=== PATIENT | female | born 1995 | race Caucasian/White ===

== ENCOUNTER 2018-02-22 07:30 | Observation (INO) | payer BC ==
[2018-02-22] MEDS ORDERED: MBX SOLN 30 ML BOTTLE PO ONE (09:01)
--- NOTE | 2018-02-22 09:12 | PDGENHP ---
History and Physical - Chief Complaint vomiting and upper abdominal pain - History of Present Illness 22 G1 at 38w2d presents with an episode of vomiting this morning. Got up, felt some upper abdominal pain, took a bath, minimal relief, back to bed, then got up suddenly and vomited and collapsed as she did so. Also vomited again once after arrival here. Currently no appetite but no persistent nausea. Has a hx of GERD, and sometimes takes Tums, but did not try this morning. Similar episode happened 4 days ago, but resolved and did not happen again until this morning. Denied Etoh or drug use to ELSIE Whitlock. no VB, no LOF. Good FM. NO VILLASENOR, no vis changes, no change in edema. No fevers. No change in bowel or bladder habits. Is not feeling any contractions. care with BW. Dating by LMP and 8w5d US. A pos Rubella NON immune GBS POS Innatal neg, all other labs wnl. History Information - Allergies/Home Medication List Allergies/Adverse Reactions: latex Allergy (Verified 02/22/18 07:54) Swelling/neck,face,throat avocado Allergy (Uncoded 02/22/18 07:54) Home Medications: Albuterol [Proventil Inhaler HFA (*)] 1 - 2 puffs IH PRN 02/22/18 [Last Taken Unknown] Ferrous Sulfate [Slow Fe 140 MG (*)] 140 mg PO DAILY 02/22/18 [Last Taken 1 Day Ago ~02/21/18] Vit27&Calcium/Iron/FA [] 1 tab PO DAILY 02/22/18 [Last Taken 1 Day Ago ~02/21/18] I have personally reviewed and updated: family history, medical history, social history, surgical history Past Medical History: migraines, ADD - no meds in preg, Asthma, hx depression and anxiety. LSIL pap - needs colp pp. L axillary mass - stable x 5yr - Past Medical History asthma - Surgical History Reports: no pertinent surgical hx Additional surgical history: no surgery - Family History Positive for: non-pertinent - Social History Smoking Status: Current some day smoker Tobacco Use: Less than 1 pack/day (says down to 1 cig per day) Drug Use: None Review of Systems Review of Systems: ROS: 10pt was reviewed & negative except for what was stated in HPI & below Physical Exam Physical Exam: FHR - 130, reactive, mod pablo, + accels, no decels, Cat 1 toco - no contractions 36.8 20 97 106/61 Constitutional: no apparent distress Eyes: PERRL, EOMI Ears, Nose, Mouth, Throat: moist mucous membranes, hearing normal, ears appear normal Cardiovascular: regular rate and rhythym, systolic murmur Respiratory: no respiratory distress, no rales or rhonchi Gastrointestinal: normoactive bowel sounds (fundus firm and NT, c/w 38wk), soft , non-tender abdomen (mild epigastric tenderness, no rebound or guarding, ) Skin: warm, normal color, no rashes or abrasions Musculoskeletal: no muscle tenderness (BLE - 1+ brisk reflexes, 1+ pitting edema ) Neurologic: AAOx3 Psychiatric: interacting appropriately, not anxious Lab Data & Imaging Review Urine dip neg - will send for full UA and culture if indicated. Assessment & Plan Assessment: 22 G1 with epigastric pain and vomiting this morning, similar to an episode 4 d ago - suspect GERD. Will try a GI cocktail - if relieves pain, will recommend starting on regular Pepcid or Zantac until delivers. Will also consider Zofran if vomiting continues. Reassuring monitoring. Natalie Barclay MD, FACOG [facility], [place]
--- NOTE | 2018-02-22 11:55 | SOAPPROG ---
SOAP Progress Note Assessment/Plan: Assessment: 22 G1 at 38w2d with GERD and likely viral gastroenteritis. Epigastric pain resolved with GI cocktail. Pt desires dc home. Plan: DC home. Pt instructed to hydrate well. If N/V and now diarrhea continues for more than 24 hours, needs to come back as may need IV hydration. BRAT diet FU as scheduled in office in 3 days. Natalie Barclay MD, FACOG [facility] 02/22/18 11:50 Subjective: Pt feeling OK. Epigastric pain resolved with GI cocktail. Has now had one episode of diarrhea. Is able to sip water. Has had a couple bites of toast without vomiting. Declines IV placement and IV hydration - prefers to try to hydrate at home. Objective: gen - pleasant, resting comfortably in bed. abd - gravid, NT - Time Spent With Patient Time Spent With Patient: Total time today - 30 min face to face - Pending Discharge Pending Discharge Within 24 Hours: Yes Pending Discharge Within 48 Hours: Yes Pending Discharge Date: 02/23/18 Pending Discharge Time: 11:00 ICD10 Worksheet Patient Problems: Problems Problem Status Onset GERD (gastroesophageal reflux disease) Acute Gastroenteritis Acute Gastroenteritis and colitis, viral Acute Gastroenteritis and colitis, viral Acute - ICD10 Problem Qualifiers (1) GERD (gastroesophageal reflux disease) (2) Gastroenteritis (3) Gastroenteritis and colitis, viral (4) Gastroenteritis and colitis, viral
== END 2018-02-22 12:30 | disposition home or self-care (01) ==
LOC: FLD 07:30
PROVIDERS: ADMIT Hospitalist; ATTEND Hospitalist
DX: O21.2 Late vomiting of pregnancy (principal); O99.333 Smoking (tobacco) complicating pregnancy, third trimester; Z3A.38 38 weeks gestation of pregnancy; Z91.040 Latex allergy status; F17.210 Nicotine dependence, cigarettes, uncomplicated
CPT/HCPCS: 59025; G0378

== ENCOUNTER 2018-02-25 18:10 | Inpatient (IN) | payer BC ==
[2018-02-25] MEDS ORDERED: OLIVE OIL 118 ML BTL MISC PRN (18:18)
[2018-02-25] MEDS ORDERED: LR 1,000 ML IV PRN (18:18)
[2018-02-25] MEDS ORDERED: AMMONIA AROMATIC 1 EACH AMP IH PRN (18:18)
[2018-02-25] MEDS ORDERED: AMPICILLIN SODIUM 2 GM in NS 100 ML IV ONE (18:18)
[2018-02-25] MEDS ORDERED: IBUPROFEN 600 MG TAB PO PRN (18:18)
[2018-02-25] MEDS ORDERED: OXYTOCIN/RINGERS LACTATE 1,000 ML IV PRN (18:18)
[2018-02-25] MEDS ORDERED: LIDOCAINE 1% 300 MG/30 ML SDV SC PRN (18:18)
[2018-02-25] MEDS ORDERED: TERBUTALINE SULFATE 1 MG/ML VIAL IV PRN (18:18)
[2018-02-25] MEDS ORDERED: EPSOM SALT 454 GM TP PRN (18:18)
[2018-02-25] MEDS ORDERED: MISOPROSTOL 200 MCG TAB PO PRN (18:18)
[2018-02-25] MEDS ORDERED: MISOPROSTOL 25 MCG CAP PO ONE (19:30)
[2018-02-25] MEDS ORDERED: CALCIUM CARBONATE 500 MG CHEWABLE TAB PO PRN ×2 (21:47→22:45)
[2018-02-25] MEDS ORDERED: ACETAMINOPHEN 500 MG TAB PO PRN (21:47)
[2018-02-25 21:54] LABS: PLATELET COUNT 131 10^3/uL (150-400)
--- NOTE | 2018-02-25 22:21 | GHP ---
DATE OF ADMISSION: 02/25/2018 ADMITTING DIAGNOSIS: Intrauterine at 38-5/7 weeks' gestation with gestational hypertension for induction of labor. HISTORY OF PRESENT ILLNESS: The patient is a 22-year-old, 1, para 0, with a last menstrual p eriod of 05/30/2017, and an EDC of 03/06/2018, which was confirmed by an 8-week ultrasound. She has had good care at [facility] since registration at 8 weeks' gestation. Her signifi cant risk factor is she has a history of asthma. She has albuterol that she uses as needed and she does a steroid inhaler daily. She has a history of depression and anxiety. No current medic ation. She will be monitored closely. She has a left axillary mass that has been stable. Question lipoma versus accessory breast tissue. It has not changed in . We will observe. She had a low-grade ODESSA Pap in . Colposcopy was done. No biopsy was done. We will perform postpart um. She is rubella nonimmune, and she has developed gestational hypertension. She began having elev ated blood pressures at 34 weeks' gestation. She had a blood pressure of 130/88. Repeats were gwen r, 110/78. She was given PIH precautions. At 36 weeks, blood pressure was 140/66. She had PIH labs done. The only significant finding was borderline platelets of 131. Her P:C ratio was 0.298. She was continued to be followed weekly, and she denied any symptoms. Blood pressure today was again caesar vated, 140s over 80s, and repeat was the same. Decision was made to proceed with induction of labor for gestational hypertension with a clinical diagnosis of more than 1 elevated blood pressure over 14 0s over 90s. Patient continues to deny headache, scotomata, right upper quadrant pain, or significan t edema. She reports good movement. No leakage of fluid. No vaginal bleeding. No significan t contractions. PAST OBSTETRICAL HISTORY: Zero. This is her 1st . PAST GYNECOLOGICAL HISTORY: Significant for a low-grade ODESSA Pap in this . Colposcopy was p erformed, but no biopsies were performed. This will be repeated . She had normal menarche at age 15, interval every 25-28 days, length of 3-4 days. Regular last menstrual period of 05/30/19 18. She has no other gynecological history. PAST MEDICAL HISTORY: Asthma, history of anxiety, depression, and a left axillary mass. No past malaika gical history. She has a history of migraines. SOCIAL HISTORY: She is a smoker. She has cut down and quit during this . She denies alcoh ol or drug abuse. She lives with her partner, Daren. She is not currently working. They moved from [place] approximately 3 months prior to registration for this . She also has a history of ADD and has been on Adderall. ALLERGIES: She is allergic to latex which causes facial swelling. She is also allergic to avocados, but no known drug allergies. LABS: In this , she is A positive, antibody negative. RPR nonreactive. Rubella nonimmune. Hepatitis negative. HIV negative. 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 Father of the baby was negative. Pap L GSIL. Gonorrhea and chlamydia negative. Urine negative. Urine drug screen negative. Varicella imm une. Verify was normal. AFP was negative. One-hour GTT 77. GBS is positive. FAMILY HISTORY: Mother had ovarian cancer 7 years ago. She is still living. PHYSICAL EXAMINATION: VITAL SIGNS: Currently, her blood pressure is 127/73. Also, she had a 138/88 . Temperature is 36.9. Other vital signs are stable. heart tones are 130s, reactive moderate variability, category 1. She is not petros. Cervix in the office was closed, 40% high, and the baby was confirmed to be cephalic. Labs are pending at this time. ASSESSMENT/PLAN: A 22-year-old 1, para 0, at 38-5/7 weeks' gestation, with gestational hyper tension, documented blood pressures over 140s over 90s on more than 1 occasion, for induction of labo r. Patient will have Cytotec for cervical ripening overnight and assessment in the morning for possi ble Pitocin versus Lynn catheter for further ripening with Pitocin. [facility] labs are pending, as well a s a repeat urine P:C. /[id number]/MODL
[2018-02-25] MEDS ORDERED: OXYTOCIN 10 UNIT/ML VIAL ONE (22:37)
[2018-02-25] MEDS: AMPICILLIN SODIUM 1 GM in NS 100 ML IV SCH (23:17)
[2018-02-25] MEDS: MISOPROSTOL 50 MCG CAP PO SCH (23:17)
[2018-02-26] MEDS: MISOPROSTOL 50 MCG CAP PO SCH ×3 (01:15→11:21)
[2018-02-26] MEDS: AMPICILLIN SODIUM 1 GM in NS 100 ML IV SCH ×2 (08:48→11:20)
[2018-02-26] MEDS ORDERED: diphenhydrAMINE 25 MG CAP PO PRN (11:59)
[2018-02-26] MEDS ORDERED: OXYTOCIN/RINGERS LACTATE 500 ML IV SCH (12:00)
[2018-02-26] MEDS ORDERED: LR 500 ML IV PRN (12:00)
--- NOTE | 2018-02-26 12:10 | OBPROG ---
Labor Progress Note Assessment/Plan: Assessment: 22 y/o @ 38 6/7 weeks for IOL secondary to GHTN Plan: Pt is s/p Cytotec x 2 - last at 0130, unable to give additional doses secondary to frequent ctx's SVE: FT/50/-2, anterior Omnzon bulb was placed via speculum and inflated with 40 cc NS; pt yannick well; no complications Became aware that pt is allergic to Latex, and Benadryl was given-so far pt is doing well with no reaction FHTs - Cat I tracing, reassuring Will keep monzon in place x 12 hours and then start Pitocin around midnight along with PCN for GBS prophylaxis BPs stable, pt remains asymptomatic Will cont to closely monitor 02/26/18 12:17 Subjective/Intrapartum Course: 02/26/18 12:10 Pt doing well with no complaints. States some mild cramping. Denies any HAs, visual changes or RUQ pain. Good FM noted. Denies any LOF or VB. Objective: 02/25/18 21:35 02/25/18 21:35 Patient ABO/Rh A POSITIVE 02/25/18 21:35 Uric Acid 4.2 mg/dL (2.5-6.8) 02/25/18 21:35 Total Bilirubin 0.2 mg/dL (0.1-1.4) 02/25/18 21:35 Conjugated Bilirubin 0.1 mg/dL (0.0-0.5) 02/25/18 21:35 Unconjugated Bilirubin 0.1 mg/dL (0.0-1.1) 02/25/18 21:35 AST 23 IU/L (14-46) 02/25/18 21:35 ALT 31 IU/L (9-52) 02/25/18 21:35 Lactate Dehydrogenase 460 IU/L (313-618) 02/25/18 21:35 - SVE Dilation (cm): 1 (FT) Effacement (%): 50 Station: -2 Membranes: Intact - Contraction Pattern Assessment Current Contraction Pattern: Irregular (q3-5 min) - FHR Assessment Dash FHR (bpm): 140 FHR Pattern Variability: Moderate FHR Category: 1 - Procedures Non-surgical Procedures: Other (Specify) (Monzon bulb placement) - AP Antepartum Course: 02/26/18 12:15 GHTN. +tobacco use, ?quit. Rubella nonimmune. GBS positive. Abn pap -LSIL. Oxytocin Orders Assessment - Pre-Induction/Augmentation Assessment Gestational Age: 38 week(s) and 5 day(s) ICD10 Worksheet Patient Problems: Problems Problem Status Onset Encounter for induction of labor Acute GBS (group B Streptococcus carrier), +RV culture, currently Acute Gestational hypertension Acute
[2018-02-27] MEDS: PENICILLIN G POTASSIUM 2,500,000 UNIT in D5W 150 ML IV SCH ×6 (00:09→17:31)
[2018-02-27] MEDS ORDERED: fentaNYL 2MCG/ML/BUP 0.1% RTU 100 ML BAG EP ONE (03:33)
[2018-02-27] MEDS ORDERED: PHENYLEPHRINE HCL 100 MCG/ML SYR ONE (03:33)
[2018-02-27] MEDS ORDERED: PHENYLEPHRINE HCL 100 MCG/ML SYR IVP PRN (04:18)
--- NOTE | 2018-02-27 04:18 | PREANESOB ---
Obstetric Pre-Anesthesia Info - General Info : 1 Para: 0 CARLO: 03/06/18 Gestational Age: 38 week(s) and 5 day(s) - Info Status: Full Term Monitors: External FHR Pattern: Reassuring - Labor Status Cervical Dilation per last OB SVE: 1 (FT) Station per last OB SVE: -2 PIH: Mild Indications for Labor Analgesia: Induction of Labor Labor Epidural: Proposed Anesthesia Allergies/Adverse Reactions: Allergy/AdvReac Type Severity Reaction Status Date / Time latex Allergy Swelling/ne Verified 02/22/18 07:54 ck,face,thr oat avocado Allergy Uncoded 02/22/18 07:54 Home Medications: Medication Instructions Recorded Albuterol [Proventil Inhaler HFA 1 - 2 puffs IH PRN 02/22/18 (*)] Ferrous Sulfate [Slow Fe 140 MG 140 mg PO DAILY 02/22/18 (*)] Vit27&Calcium/Iron/FA 1 tab PO DAILY 02/22/18 [] Visit Medications: Generic Name Dose Route Start Last Admin Trade Name Freq PRN Reason Stop Dose Admin Acetaminophen 1,000 mg 02/25/18 21:47 Tylenol PO 08/24/18 21:46 Q6HRS PRN Pain, Mild/Fever, Can Take PO Ammonia (Aromatic Spirit) 1 each 02/25/18 18:18 Ammonia Aromatic IH 03/07/18 18:17 ONCE PRN Fainting Calcium Carbonate 500 mg 02/25/18 21:47 02/26/18 05:38 Tums PO 08/24/18 21:46 500 mg TID PRN Administration Indigestion Calcium Carbonate 500 - 1,000 mg 02/25/18 22:45 02/25/18 22:45 Tums PO 08/24/18 22:44 500 mg Q4 PRN Administration INDIGESTION Diphenhydramine HCl 25 mg 02/26/18 11:59 02/26/18 12:10 Benadryl PO 08/25/18 11:58 25 mg Q6HRS PRN Administration Itching Oxytocin/Lactated Ringer's 1,000 mls @ 0 mls/hr 02/25/18 18:18 Pitocin 20 Units/Lr (Premix) IV PRN PRN Post bleeding Wide Open Oxytocin/Lactated Ringer's 500 mls @ 0 mls/hr 02/26/18 12:00 02/27/18 00:09 Pitocin 30 Units/Lr (Premix) IV 08/25/18 11:59 500 mls CONT ELIZABETH Administration Protocol Per Protocol Penicillin G Potassium 2,500, 155 mls @ 155 mls/hr 02/27/18 04:00 000 unit/ Dextrose IV 03/29/18 00:00 Q4H ELIZABETH Protocol Ibuprofen 600 mg 02/25/18 18:18 Motrin PO ONCE PRN post , pain Lidocaine HCl 300 mg 02/25/18 18:18 Lidocaine Hcl 1% SC 08/24/18 18:17 ONCE PRN episiotomy Magnesium Sulfate 454 gm 02/25/18 18:18 Epsom Salt TP 08/24/18 18:17 Q1H PRN perineal discomfort Misoprostol 800 - 1,000 mcg 02/25/18 18:18 Cytotec PO 08/24/18 18:17 ONCE PRN Vaginal Atony/Bleeding Applegate Oil 118 ml 02/25/18 18:18 Sweet Oil MISC 08/24/18 18:17 ONCE PRN perineal massage Terbutaline Sulfate 0.25 mg 02/25/18 18:18 Brethine IV 08/24/18 18:17 ONCE PRN Tachysystole Discontinued Medications Generic Name Dose Route Start Last Admin Trade Name Freq PRN Reason Stop Dose Admin Fentanyl/Bupivacaine HCl Confirm 02/27/18 03:33 Fentanyl/Bupivacaine/Ns 2 Mcg/Ml 0.1% (Premix Administered 02/27/18 03:34 Dose 100 ml EP .STK-MED ONE Ampicillin Sodium 2 gm/ Sodium 110 mls @ 220 mls/hr 02/25/18 18:18 02/25/18 23:16 Chloride IV 02/25/18 18:47 Not Given ONCE ONE Protocol Ampicillin Sodium 1 gm/ Sodium 100 mls @ 200 mls/hr 02/25/18 22:30 02/26/18 11:20 Chloride IV 03/27/18 22:29 Not Given Q4H [facility] Protocol Lactated Ringer's 1,000 mls @ 0 mls/hr 02/25/18 18:18 Lr IV 02/26/18 18:17 PRN PRN SEE PROTOCOL CONDITIONS Protocol Per Protocol Lactated Ringer's 500 mls @ 500 mls/hr 02/26/18 12:00 02/27/18 00:09 Lr IV 02/27/18 12:00 500 mls PRN PRN Administration Maternal Hypotension Penicillin G Potassium 2,500, 155 mls @ 155 mls/hr 02/27/18 00:01 02/27/18 02 :34 000 unit/ Dextrose IV 03/29/18 00:00 Not Given Q4HRS [facility] Protocol Misoprostol 25 mcg 02/25/18 19:30 02/25/18 21:19 Cytotec PO 02/25/18 19:31 25 mcg ONCE ONE Administration Misoprostol 50 mcg 02/25/18 21:30 02/26/18 11:21 Cytotec PO 08/24/18 21:29 Not Given Q4H [facility] Oxytocin Confirm 02/25/18 22:37 Pitocin Administered 02/25/18 22:38 Dose 10 unit .ROUTE .STK-MED ONE Phenylephrine HCl Confirm 02/27/18 03:33 Neosynephrine Administered 02/27/18 03:34 Dose 1,000 mcg .ROUTE .STK-MED ONE - Vital Signs Height/Weight (Nursing): Height 175.26 cm Weight 85.729 kg - Focused Exam Neck exam: FROM Mallampati Score: Class 2 Mouth exam: normal dental/mouth exam Pulmonary: no respiratory distress, no rales or rhonchi, clear to auscultation Cardiovascular: regular rate and rhythym, no murmur, rub, or gallop Labs: 02/25/18 21:35 02/25/18 21:35 Patient ABO/Rh A POSITIVE 02/25/18 21:35 Uric Acid 4.2 mg/dL (2.5-6.8) 02/25/18 21:35 Total Bilirubin 0.2 mg/dL (0.1-1.4) 02/25/18 21:35 Conjugated Bilirubin 0.1 mg/dL (0.0-0.5) 02/25/18 21:35 Unconjugated Bilirubin 0.1 mg/dL (0.0-1.1) 02/25/18 21:35 AST 23 IU/L (14-46) 02/25/18 21:35 ALT 31 IU/L (9-52) 02/25/18 21:35 Lactate Dehydrogenase 460 IU/L (313-618) 02/25/18 21:35
[2018-02-27] MEDS ORDERED: LR 500 ML IV SCH (04:30)
--- NOTE | 2018-02-27 04:36 | POSTANESTH ---
Post Anesthetic Evaluation Cardiovascular Status: Normal, Stable Respiratory Status: Normal, Stable, Similar to Pre-op Cond. Level of Consciousness/Mental Status: Can Participate in Eval, Alert and Oriented Pain Control: Adequate, Prn Tx Ordered Nausea/Vomiting Control: Adequate, Prn Tx Ordered Complications Possibly Related to Anesthesia: None Noted (Good analgesia.)
--- NOTE | 2018-02-27 09:58 | OBPROG ---
Labor Progress Note Assessment/Plan: Assessment: 22 y/o @ 39 y/o IOL secondary to Gestational HTN Plan: She is on pitocin and is comfortable with her epidural. Good cervical progress , hopeful that AROM with accelerate things. IUPC place to ensure adequate contractions. status is reassuring. BP have been stable and she remains asymptomatic. 02/27/18 09:58 Subjective/Intrapartum Course: 02/26/18 12:10 Pt doing well with no complaints. States some mild cramping. Denies any HAs, visual changes or RUQ pain. Good FM noted. Denies any LOF or VB. 02/27/18 09:55 Pt is resting comfortably with her epidural. She is aware of some contractions but denies pain. No pelvic pressure. Objective: 02/25/18 21:35 02/25/18 21:35 Patient ABO/Rh A POSITIVE 02/25/18 21:35 Uric Acid 4.2 mg/dL (2.5-6.8) 02/25/18 21:35 Total Bilirubin 0.2 mg/dL (0.1-1.4) 02/25/18 21:35 Conjugated Bilirubin 0.1 mg/dL (0.0-0.5) 02/25/18 21:35 Unconjugated Bilirubin 0.1 mg/dL (0.0-1.1) 02/25/18 21:35 AST 23 IU/L (14-46) 02/25/18 21:35 ALT 31 IU/L (9-52) 02/25/18 21:35 Lactate Dehydrogenase 460 IU/L (313-618) 02/25/18 21:35 113/57, 125/70, 101/55, 112/58, 127/66 - SVE Dilation (cm): 6 Effacement (%): 75 Station: -2 Membranes: AROM, Intact Amniotic Fluid Color: Meconium Stained - Contraction Pattern Assessment Current Contraction Pattern: Regular (Q 4-5), Irregular (q3-5 min) - FHR Assessment Dash FHR (bpm): 120 FHR Pattern Variability: Moderate FHR Category: 1 - Procedures Non-surgical Procedures: Amniotomy, IUPC, Other (Specify) (Lynn bulb placement) - AP Antepartum Course: 02/26/18 12:15 GHTN. +tobacco use, ?quit. Rubella nonimmune. GBS positive. Abn pap -LSIL. Oxytocin Orders Assessment - Pre-Induction/Augmentation Assessment Gestational Age: 38 week(s) and 5 day(s) ICD10 Worksheet Patient Problems: Problems Problem Status Onset Encounter for induction of labor Acute GBS (group B Streptococcus carrier), +RV culture, currently Acute Gestational hypertension Acute
[2018-02-27] MEDS: fentaNYL 2MCG/ML/BUP 0.1% RTU 100 ML EP SCH ×2 (10:20→13:53)
--- NOTE | 2018-02-27 11:32 | OBPROG ---
Labor Progress Note Assessment/Plan: Assessment: 22 y/o @ 39 y/o IOL secondary to Gestational HTN Plan: She is having more pain and not imminent for delivery. We will call anesthesia for a bolus and adjustment. Continue pitocin and status is reassuring. 02/27/18 09:58 02/27/18 11:31 Subjective/Intrapartum Course: 02/26/18 12:10 Pt doing well with no complaints. States some mild cramping. Denies any HAs, visual changes or RUQ pain. Good FM noted. Denies any LOF or VB. 02/27/18 09:55 Pt is resting comfortably with her epidural. She is aware of some contractions but denies pain. No pelvic pressure. 02/27/18 11:29 I was called to assess patient because of difficulties with pain control from her epidural. She is feeling contractions along her lower abdomen and pelvis. Not rectal pressure, pain. Objective: 02/25/18 21:35 02/25/18 21:35 Patient ABO/Rh A POSITIVE 02/25/18 21:35 Uric Acid 4.2 mg/dL (2.5-6.8) 02/25/18 21:35 Total Bilirubin 0.2 mg/dL (0.1-1.4) 02/25/18 21:35 Conjugated Bilirubin 0.1 mg/dL (0.0-0.5) 02/25/18 21:35 Unconjugated Bilirubin 0.1 mg/dL (0.0-1.1) 02/25/18 21:35 AST 23 IU/L (14-46) 02/25/18 21:35 ALT 31 IU/L (9-52) 02/25/18 21:35 Lactate Dehydrogenase 460 IU/L (313-618) 02/25/18 21:35 - SVE Dilation (cm): 7 Effacement (%): 80 Station: -1 Membranes: AROM, Intact Amniotic Fluid Color: Meconium Stained - Contraction Pattern Assessment Current Contraction Pattern: Regular (Q 3-4), Irregular (q3-5 min) - FHR Assessment Dash FHR (bpm): 120 FHR Pattern Variability: Moderate FHR Category: 1 - Procedures Non-surgical Procedures: Amniotomy, IUPC, Other (Specify) (Lynn bulb placement) - AP Antepartum Course: 02/26/18 12:15 GHTN. +tobacco use, ?quit. Rubella nonimmune. GBS positive. Abn pap -LSIL. Oxytocin Orders Assessment - Pre-Induction/Augmentation Assessment Gestational Age: 38 week(s) and 5 day(s) ICD10 Worksheet Patient Problems: Problems Problem Status Onset Encounter for induction of labor Acute GBS (group B Streptococcus carrier), +RV culture, currently Acute Gestational hypertension Acute
[2018-02-27] MEDS ORDERED: fentaNYL 100 MCG/2 ML INJ ONE (11:37)
[2018-02-27] MEDS ORDERED: BUPIVACAINE 0.25% 30 ML SDV ONE (11:37)
--- NOTE | 2018-02-27 14:00 | OBPROG ---
Labor Progress Note Assessment/Plan: Assessment: 22 y/o @ 40 y/o IOL secondary to Gestational HTN Plan: On exam, baby feels to be OP presentation. We will bolus again and try to encourage rotation with side positioning and peanut ball, or hands and knees with the werner bag. status is reassuring. 02/27/18 09:58 02/27/18 11:31 02/27/18 13:59 Subjective/Intrapartum Course: 02/26/18 12:10 Pt doing well with no complaints. States some mild cramping. Denies any HAs, visual changes or RUQ pain. Good FM noted. Denies any LOF or VB. 02/27/18 09:55 Pt is resting comfortably with her epidural. She is aware of some contractions but denies pain. No pelvic pressure. 02/27/18 11:29 I was called to assess patient because of difficulties with pain control from her epidural. She is feeling contractions along her lower abdomen and pelvis. Not rectal pressure, pain. 02/27/18 13:58 Pt is having increased back pain with contractions, not rectal pressure. She had temporarily gotten significant pain relief from an epidural bolus. Objective: 02/25/18 21:35 02/25/18 21:35 Patient ABO/Rh A POSITIVE 02/25/18 21:35 Uric Acid 4.2 mg/dL (2.5-6.8) 02/25/18 21:35 Total Bilirubin 0.2 mg/dL (0.1-1.4) 02/25/18 21:35 Conjugated Bilirubin 0.1 mg/dL (0.0-0.5) 02/25/18 21:35 Unconjugated Bilirubin 0.1 mg/dL (0.0-1.1) 02/25/18 21:35 AST 23 IU/L (14-46) 02/25/18 21:35 ALT 31 IU/L (9-52) 02/25/18 21:35 Lactate Dehydrogenase 460 IU/L (313-618) 02/25/18 21:35 - SVE Dilation (cm): 7 Effacement (%): 90 Station: +1 Membranes: AROM, Intact Amniotic Fluid Color: Meconium Stained - Contraction Pattern Assessment Current Contraction Pattern: Regular (Q 2-3), Irregular (q3-5 min) - FHR Assessment Dash FHR (bpm): 130 FHR Pattern Variability: Moderate FHR Category: 1 - Procedures Non-surgical Procedures: Amniotomy, IUPC, Other (Specify) (Lynn bulb placement) - AP Antepartum Course: 02/26/18 12:15 GHTN. +tobacco use, ?quit. Rubella nonimmune. GBS positive. Abn pap -LSIL. Oxytocin Orders Assessment - Pre-Induction/Augmentation Assessment Gestational Age: 38 week(s) and 5 day(s) ICD10 Worksheet Patient Problems: Problems Problem Status Onset Encounter for induction of labor Acute GBS (group B Streptococcus carrier), +RV culture, currently Acute Gestational hypertension Acute
[2018-02-27] MEDS ORDERED: SIMETHICONE 80 MG TAB CHEW PO PRN (17:01)
[2018-02-27] MEDS ORDERED: HYDROCORTISONE 0.5% CREAM TP PRN (17:01)
[2018-02-27] MEDS ORDERED: HYDROCODONE/APAP 5/325 TAB PO PRN (17:01)
--- NOTE | 2018-02-27 17:06 | OBDEL ---
Info Type: Vaginal Presentation at Delivery: Vertex L&D Analgesia/Anesthesia Type: Epidural GBS+: Yes Antibiotic Used for + GBS: Ampicillin Intrapartum Medications: Generic Name Dose Route Start Last Admin Trade Name Samantha PRN Reason Stop Dose Admin Calcium Carbonate 500 mg 02/25/18 21:47 02/26/18 05:38 Tums PO 08/24/18 21:46 500 mg TID PRN Administration Indigestion Calcium Carbonate 500 - 1,000 mg 02/25/18 22:45 02/25/18 22:45 Tums PO 08/24/18 22:44 500 mg Q4 PRN Administration INDIGESTION Diphenhydramine HCl 25 mg 02/26/18 11:59 02/26/18 12:10 Benadryl PO 08/25/18 11:58 25 mg Q6HRS PRN Administration Itching Oxytocin/Lactated Ringer's 500 mls @ 0 mls/hr 02/26/18 12:00 02/27/18 00:09 Pitocin 30 Units/Lr (Premix) IV 08/25/18 11:59 500 mls CONT ELIZABETH Administration Protocol Per Protocol Penicillin G Potassium 2,500, 155 mls @ 155 mls/hr 02/27/18 04:00 02/27/18 11 :58 000 unit/ Dextrose IV 03/29/18 00:00 155 mls Q4H ELIZABETH Administration Protocol Fentanyl/Bupivacaine HCl 100 mls @ 0 mls/hr 02/27/18 04:30 02/27/18 13:53 Fentanyl/Bupivacaine/Ns 2 Mcg/Ml 0.1% (Premix EP 03/09/18 04:29 100 mls CONT ELIZABETH Administration Protocol As Directed Phenylephrine HCl 100 mcg 02/27/18 04:18 02/27/18 04:15 Neosynephrine IVP 08/26/18 04:17 100 mcg .Q2M PRN Administration Hypotension Discontinued Medications Generic Name Dose Route Start Last Admin Trade Name Samantha PRN Reason Stop Dose Admin Ampicillin Sodium 2 gm/ Sodium 110 mls @ 220 mls/hr 02/25/18 18:18 02/25/18 23:16 Chloride IV 02/25/18 18:47 Not Given ONCE ONE Protocol Ampicillin Sodium 1 gm/ Sodium 100 mls @ 200 mls/hr 02/25/18 22:30 02/26/18 11:20 Chloride IV 03/27/18 22:29 Not Given Q4H [facility] Protocol Lactated Ringer's 500 mls @ 500 mls/hr 02/26/18 12:00 02/27/18 00:09 Lr IV 02/27/18 12:00 500 mls PRN PRN Administration Maternal Hypotension Penicillin G Potassium 2,500, 155 mls @ 155 mls/hr 02/27/18 00:01 02/27/18 02 :34 000 unit/ Dextrose IV 03/29/18 00:00 Not Given Q4HRS [facility] Protocol Misoprostol 25 mcg 02/25/18 19:30 02/25/18 21:19 Cytotec PO 02/25/18 19:31 25 mcg ONCE ONE Administration Misoprostol 50 mcg 02/25/18 21:30 02/26/18 11:21 Cytotec PO 08/24/18 21:29 Not Given Q4H [facility] - Infant Care Provider Flight Engineer/KILN FEEDER: Katrina Ag - Hospital Course Intrapartum: 02/26/18 12:10 Pt doing well with no complaints. States some mild cramping. Denies any HAs, visual changes or RUQ pain. Good FM noted. Denies any LOF or VB. 02/27/18 09:55 Pt is resting comfortably with her epidural. She is aware of some contractions but denies pain. No pelvic pressure. 02/27/18 11:29 I was called to assess patient because of difficulties with pain control from her epidural. She is feeling contractions along her lower abdomen and pelvis. Not rectal pressure, pain. 02/27/18 13:58 Pt is having increased back pain with contractions, not rectal pressure. She had temporarily gotten significant pain relief from an epidural bolus. Indications for Delivery: Gestational Hypertension Vaginal Delivery - Delivery Provider Delivery Physician/CNM: Nati Fam - Labor and Delivery Onset of Contractions Date: 02/27/18 Onset of Contractions Time: 02:30 Onset of Contractions Type: Induced Rupture of Membranes Date: 02/27/18 Rupture of Membranes Time: 09:51 Rupture of Membranes Type: Artificial Amniotic Fluid Color: Meconium Stained Dilation Complete Date: 02/27/18 Dilation Complete Time: 15:55 Placenta Delivery Date: 02/27/18 Placenta Delivery Time: 16:37 Total Hours of Labor: 14 Non-surgical Procedures: Amniotomy, IUPC, Other (Specify) (Lynn bulb placement) Laceration: 2nd Degree, Other (Specify) (right labial) Repair: 2-0, 3-0, Vicryl Vaginal Sponge Count Correct: Yes Vaginal Needle Count Correct: Yes Vaginal Sweep Performed: Yes EBL: 300 Delivery Events: None - Medications Labor Augmentation/Induction Methods Used: Pitocin, Misoprostol, Lynn Bulb Labor Augmentation/Induction Indication: Other (Specify) (Gestational HTN) [place] Data CARLO: 03/06/18 Gestational Age: 39 week(s) and 0 day(s) Dash Delivery Date: 02/27/18 Delivery Time: 16:32 Sex of Infant: Male Score (1 Min): 8 Score (5 Min): 8 ICD10 Worksheet Patient Problems: Problems Problem Status Onset Encounter for induction of labor Acute GBS (group B Streptococcus carrier), +RV culture, currently Acute Gestational hypertension Acute (spontaneous vaginal delivery) Acute - ICD10 Problem Qualifiers (1) (spontaneous vaginal delivery)
[2018-02-27] MEDS: ACETAMINOPHEN 325 MG TAB PO SCH (17:24)
[2018-02-27] MEDS: IBUPROFEN 600 MG TAB PO SCH (23:23)
[2018-02-28] MEDS: ACETAMINOPHEN 325 MG TAB PO SCH ×4 (00:30→19:17)
[2018-02-28] MEDS: IBUPROFEN 600 MG TAB PO SCH ×3 (04:41→19:17)
--- NOTE | 2018-02-28 09:24 | POSTANESTH ---
Post Anesthetic Evaluation Cardiovascular Status: Normal, Stable Respiratory Status: Normal, Stable Level of Consciousness/Mental Status: Can Participate in Eval Pain Control: Adequate, Prn Tx Ordered Nausea/Vomiting Control: Adequate, Prn Tx Ordered Complications Possibly Related to Anesthesia: None Noted (Patient reports good analgesia from labor epidural. She denies any residual weakness/numbness, ambulating without difficulty. No headache or visual/auditory complaints.)
--- NOTE | 2018-02-28 09:35 | OBPP ---
Progress Note Assessment/Plan: Assessment: 1) s/p IOL for GHTN PPD # 1 - pt is stable 2) Anemia - pt is asymptomatic Plan: Continue routine pp care BPs stable Encourage ambulation Baby boy in NICU for respiratory issues on Gent Will start iron, cont colace Plan for d/c home or border in am 11/3 02/28/18 09:35 Subjective/ Course: 02/28/18 09:33 Pt seen and examined. Doing well, up in the NICU getting ready to breast feed baby boy. Mild cramping. Mod lochia. Pt is yannick regular diet, voiding without difficulty and passing flatus. No BM yet. She has already pumped 1 oz of colostrum. Denies any dizziness when up OOB, ambulating. Objective: 02/28/18 05:00 02/25/18 21:35 Patient ABO/Rh A POSITIVE 02/25/18 21:35 Uric Acid 4.2 mg/dL (2.5-6.8) 02/25/18 21:35 Total Bilirubin 0.2 mg/dL (0.1-1.4) 02/25/18 21:35 Conjugated Bilirubin 0.1 mg/dL (0.0-0.5) 02/25/18 21:35 Unconjugated Bilirubin 0.1 mg/dL (0.0-1.1) 02/25/18 21:35 AST 23 IU/L (14-46) 02/25/18 21:35 ALT 31 IU/L (9-52) 02/25/18 21:35 Lactate Dehydrogenase 460 IU/L (313-618) 02/25/18 21:35 Temp Pulse Resp BP Pulse Ox 36.7 C 84 16 112/60 96 02/28/18 09:17 02/28/18 09:17 02/28/18 09:17 02/28/18 09:17 02/28/18 09:17 Uterine Position/Fundal Height: Umbilicus -2 Uterine Tone: Firm Physical Exam - Physical Exam General Appearance: alert, no apparent distress, mild distress Respiratory: lungs clear, normal breath sounds Cardiac/Chest: regular rate, rhythm Abdomen: normal bowel sounds, non-tender, soft, flatus (+) Extremities: non-tender, normal inspection Skin: normal color, warm/dry Neuro/Psych: alert, normal mood/affect, oriented x 3
[2018-02-28] MEDS: DOCUSATE SODIUM 100 MG CAP PO PRN (10:18)
[2018-02-28] MEDS: FERROUS SULFATE 140 MG TAB.ER PO SCH (10:18)
[2018-02-28] MEDS ORDERED: MEASLES,MUMPS&RUBELLA VACC/PF 0.5 ML VIAL SC ONE ×2 (12:50→16:00)
[2018-03-01] MEDS: ACETAMINOPHEN 325 MG TAB PO SCH ×2 (03:12→15:00)
[2018-03-01] MEDS: IBUPROFEN 600 MG TAB PO SCH ×2 (03:13→09:57)
--- NOTE | 2018-03-01 08:17 | OBPP ---
Progress Note Assessment/Plan: Assessment: 22 G1 now P1 PPD#2 s/p after IOL for gest HTN, doing well, anemia Plan: DC home - reviewed std pp instructions, including ssx pp depression. See dc summary. Natalie Barclay MD, FACOG\ [facility] 03/01/18 10:38 Subjective/ Course: 02/28/18 09:33 Pt seen and examined. Doing well, up in the NICU getting ready to breast feed baby boy. Mild cramping. Mod lochia. Pt is yannick regular diet, voiding without difficulty and passing flatus. No BM yet. She has already pumped 1 oz of colostrum. Denies any dizziness when up OOB, ambulating. 03/01/18 10:41 Pt doing well. Ambulating and voiding without difficulty. Has had BM without difficulty. Mod lochia. Yannick reg diet. Pumping and . No lightheadedness and dizziness. Objective: 02/28/18 05:00 02/25/18 21:35 Patient ABO/Rh A POSITIVE 02/25/18 21:35 Uric Acid 4.2 mg/dL (2.5-6.8) 02/25/18 21:35 Total Bilirubin 0.2 mg/dL (0.1-1.4) 02/25/18 21:35 Conjugated Bilirubin 0.1 mg/dL (0.0-0.5) 02/25/18 21:35 Unconjugated Bilirubin 0.1 mg/dL (0.0-1.1) 02/25/18 21:35 AST 23 IU/L (14-46) 02/25/18 21:35 ALT 31 IU/L (9-52) 02/25/18 21:35 Lactate Dehydrogenase 460 IU/L (313-618) 02/25/18 21:35 Temp Pulse Resp BP Pulse Ox 36.6 C 84 16 117/62 96 02/28/18 20:50 02/28/18 20:50 02/28/18 20:50 02/28/18 20:50 02/28/18 20:50 BPs stable over the past 24 hours. gen - pleasant female, NAD CV - RRR chest - CTAB abd - soft, + BS, fundus firm at U-2 ext - 2+ pitting edema BLE, no calf tenderness perineum - declined exam Uterine Position/Fundal Height: Umbilicus -2 Uterine Tone: Firm
[2018-03-01] MEDS: FERROUS SULFATE 140 MG TAB.ER PO SCH (09:57)
[2018-03-01] MEDS: DOCUSATE SODIUM 100 MG CAP PO PRN (09:57)
[2018-03-01 11:44] VITALS: BP 115/67
== END 2018-03-01 14:15 | disposition home or self-care (01) | DRG 807 ==
LOC: OBSVTOIN 18:10 → FLD 18:10 → FOB 02-27 18:15
PROVIDERS: ADMIT Obstetrics & Gynecology; ATTEND Obstetrics & Gynecology
PROC: 3E033VJ Introduction of Other Hormone into Peripheral Vein, Percutaneous Approach (ICD-10-PCS; 2018-02-25)
PROC: 10E0XZZ Delivery of Products of Conception, External Approach (ICD-10-PCS; principal; 2018-02-27)
PROC: 10907ZC Drainage of Amniotic Fluid, Therapeutic from Products of Conception, Via Natural or Artificial Opening (ICD-10-PCS; principal; 2018-02-27)
PROC: 0KQM0ZZ Repair Perineum Muscle, Open Approach (ICD-10-PCS; principal; 2018-02-27)
DX: O13.4 Gestational [pregnancy-induced] hypertension without significant proteinuria, complicating childbirth (principal); Z37.0 Single live birth; Z3A.38 38 weeks gestation of pregnancy; O70.1 Second degree perineal laceration during delivery
CPT/HCPCS: J2370; J2540; J2590; J3010; J3105